=== PATIENT | female | born 1975 | race Caucasian/White ===

== ENCOUNTER 2016-07-25 16:26 | Outpatient (CLI) | payer BC ==
[~2016-07-25] VITALS: Ht 162.6 cm; Wt 86.2 kg
[~2016-07-25 16:26] MED LIST: DOCU100C37 PO; ENAL10TA PO; ESTR0.62 PO; HYDR-3816 PO; IBUP-1773 PO; SIME80TA16 PO
--- OUTSIDE RECORDS SUMMARY | 2016-07-25 16:29 | XMS REPORT | Continuity of Care Document ---
Author Author [facility] [address] Organization [facility] [address] Address Unknown Phone Unavailable Care Team Providers Care Blueprint Clerk Name Role Phone DEBBI RUIZ MD PCP Insurance Providers Payer Name Policy Number Subscriber Name Relationship [facility] [id number] Mirtha Salazar 16 Self / Same As Patient Advance Directives Directive Response Recorded Date/Time Advance Directives No 10/15/15 7:03am Health Care Power of Crusher Operator No 10/15/15 7:03am Resuscitation Status Full Code 10/15/15 7:03am Problems No problem information available. Medications Current Home Medications Medication Dose Units Route Directions Days/Qty Instructions Start Date Enalapril Maleate 10 Mg 10 Mg Oral Twice A Day 10/06/15 Hydrocodone/Acetaminophen 1 Each 1-2 Ea Oral Every 6 Hours as needed for Pain 50 10/15/15 Ibuprofen 600 Mg 600 Mg Oral Every 6 Hours as needed for Pain 80 10/14 Docusate Sodium 100 Mg 100 Mg Oral Twice A Day as needed for Constipation 40 10/15/15 Simethicone 80 Mg 40 Mg Oral Three Times A Day as needed for Indigestion 40 10/15/15 Estrogens, Conjugated 0.625 Mg 0.625 Mg Oral Daily 30 10/16/15 Social History Social History Problem Response Recorded Date/Time Alcohol Use Denies Use 10/15/2015 7:03am Recreational Drug Use No 10/15/2015 7:03am Recent Foreign Travel No 10/15/2015 7:01am HIV/AIDS No 10/15/2015 7:03am Smoking Status Never a Smoker 10/15/2015 7:01am Query Response Start Date Stop Date Smoking Status Never a Smoker Hospital Discharge Instructions Patient Instructions Physician Instructions New, Converted or Re-Newed RX: RX on Chart Additional Follow Up: Yes Orders/Referrals Dr. Mendez in 7-10 days and in 8 weeks Activity: Activity as Tolerated Driving Instructions: No Driving for 1 Week NO SMOKING: NO SMOKING Nothing Inside Vagina: No Douching, No [place], No Tampons Discharge Diet: No Restrictions Symptoms to Report to : Bleeding Excessive, Pain Increased, Fever Over 101 Degrees F, Vaginal Bleeding Increase, Questions/Concerns For Any Problems or Questions: Contact Your Physician, Go to Emergency Room Infection Signs and Symptoms: Increased Redness, Foul Odor of Wound, Increased Drainage, Skin Itchy or Has a Rash, Increased Swelling, Temperature Above 101 F Operative Area Clean and Dry: Keep Incision Clean/Dry Stitches/Leonore/Dermabond: Dermabond, Care of Stitches Bathing Instructions: Shower Plan of Care Discharge Date 10/16/15 11:35am Instructions/Education Provided Robot Assisted Laparoscopic Hysterectomy (DC) Prescriptions See Medication Section Functional Status Query Response Date Recorded Patient Orientation Person Place Time Situation Normal For Age October 16, 2015 2:45pm Allergies, Adverse Reactions, Alerts No known allergies. Immunizations No immunization records. Vital Signs Acute Vital Signs Vital Response Date/Time Temperature (Fahrenheit) 97.4 degrees F (97.6 - 99.5) 10/16/2015 8:20am Temperature (Calculated Celsius) 36.59822 degrees C (36.4 - 37.5) 10/16/2015 8:20am Temperature Source Tympanic 10/16/2015 8:20am Pulse Rate (adult) 84 bpm (60 - 90) 10/16/2015 8:20am Respiratory Rate 16 bpm (12 - 24) 10/16/2015 8:20am O2 Sat by Pulse Oximetry 99 % (88 - 100) 10/16/2015 8:20am Blood Pressure 112/69 mm Hg 10/16/2015 8:20am Blood Pressure Mean 83 mm Hg 10/16/2015 8:20am Pain Pain Intensity 5 10/16/2015 11:29am Height (Feet) 5 feet 10/15/2015 7:03am Height (Inches) 2.00 inches 10/15/2015 7:03am Height (Calculated Centimeters) 157.346899 cm 10/15/2015 7:03am Weight (Pounds) 198 pounds 10/15/2015 7:03am Weight (Ounces) 0.0 oz 10/15/2015 7:03am Weight (Calculated Grams) 92405.290 gm 10/15/2015 7:03am Weight (Calculated Kilograms) 89.284243 kilograms 10/15/2015 7:03am Calculated BMI 32.94 10/15/2015 7:03am Results Pending Laboratory Results Test Name Collection Date/Time Pending Microbiology Results Procedure Source Collection Date/Time Procedures Procedure Status Date Provider(s) Robot-assisted hysterectomy Completed 10/15/15 DINO MENDEZ DO Encounters Encounter Location Arrival/Admit Date Discharge/Depart Date Attending Provider Registered Surgical Day Care [facility] [address] 10/15/15 6:00am DINO MENDEZ DO Departed Clinic [facility] [address] 10/06/15 8:16am 10/06/15 9: 46am DINO MENDEZ DO
[2016-07-25 16:30] VITALS: BP 149/106
[2016-07-25] MEDS ORDERED: D5 LR IV SOLUTION 1,000 ML IV ONE ×2 (16:38→17:15)
[2016-07-25] MEDS ORDERED: HYDR12.56 PO (17:08)
--- NOTE | 2016-07-27 11:49 | Physician Query-Final Dx ---
ANGEL HAIRSTON 07/27/16 1149: Clinic Account Progress/Dx Physician Query: Please give a diagnosis for the D5LR 1L treatment thank you Date of Service Jul 25, 2016 at 16:26 DEBBI RUIZ MD 07/28/16 0805: Clinic Account Progress/Dx DIAGNOSIS: Diagnosis 1. Dehydration 2. Viral Gastroenteritis ANGEL HAIRSTON Jul 27, 2016 11:49 DEBBI RUIZ MD Jul 28, 2016 08:05
== END 2016-07-25 17:30 | disposition home or self-care (01) ==
LOC: SDC 16:26
PROVIDERS: ATTEND Family Medicine
DX: E86.0 Dehydration (principal); A08.4 Viral intestinal infection, unspecified
CPT/HCPCS: 96360

== ENCOUNTER 2017-02-23 15:15 | Outpatient (RCR) | payer BC ==
[~2017-02-23 15:15] MED LIST changes: +HYDR12.56 PO
== END 2017-02-25 | disposition home or self-care (01) ==
PROVIDERS: ATTEND Radiology Vascular & Interventional Radiology
DX: G54.0 Brachial plexus disorders (principal)

== ENCOUNTER → 2017-03-16 | Outpatient (CLI) | payer BC ==
--- NOTE | 2017-03-16 15:43 | Diagnostic Imaging Report ---
PROCEDURE: MRI right joint upper extremity without contrast. TECHNIQUE: Multiplanar, multisequence non contrast-enhanced MRI of the right upper extremity was accomplished. INDICATION: Right arm pain. FINDINGS: Please note that there is generally mild motion artifacts on this exam from patient's inability to hold completely still which could obscure a subtle abnormality. There is no os acromiale or Hill-Sachs deformity. The AC joint demonstrates no significant degenerative changes. There is a laterally downsloping configuration of the acromion with flat undersurface. There is minimal increased signal in the supraspinatus and infraspinatus tendons compatible with mild tendinosis. No high-grade tear. The subscapularis tendon appears intact. The long head of biceps tendon is within its groove. There is increased signal seen within the inferior fibers of the infraspinatus muscle. This could be related to a mild muscle injury or myositis. There is no fluid collection, significant tear or evidence of an infection. The muscle bulk is normal. There is mild increased signal in the superior aspect of the labrum which could relate to a underlying labral tear or degeneration. The marrow demonstrates nonspecific minimally prominent vascular channels within the proximal humerus with no concerning focal lesion seen. IMPRESSION: 1. Mild increased signal in the infraspinatus muscle fibers without a high-grade injury or fluid collection. This might relate to a mild muscle sprain or myositis. 2. Increased signal in the superior segment of the labrum may relate to degeneration or tear. 3. Mild supraspinatus and infraspinatus tendinosis. Dictated by: Dictated on workstation # [id number]
== END ==
LOC: RAD 13:31
DX: R93.7 Abnormal findings on diagnostic imaging of other parts of musculoskeletal system (principal)
CPT/HCPCS: 73221

== ENCOUNTER 2017-05-26 15:12 | Outpatient (RCR) | payer BC | END 2017-05-28 | disposition home or self-care (01) | PROVIDERS: ATTEND Radiology Vascular & Interventional Radiology | DX: G54.0 Brachial plexus disorders (principal) ==

== ENCOUNTER 2017-07-06 15:58 | Outpatient (RCR) | payer BC ==
[~2017-07-06 15:58] MED LIST changes: +HYDR-34 PO; -HYDR-3816 PO
== END 2017-07-20 10:20 | disposition home or self-care (01) ==
PROVIDERS: ATTEND Radiology Vascular & Interventional Radiology
DX: G54.0 Brachial plexus disorders (principal)

== ENCOUNTER → 2017-07-14 | Outpatient (CLI) | payer BC ==
--- NOTE | 2017-07-14 18:11 | Diagnostic Imaging Report ---
INDICATION: Routine screening. COMPARISON: Comparison is made with prior study from 08/10/2015. The current study was also evaluated with a Computer Aided Detection (CAD) system. FINDINGS: Scattered fibroglandular densities are identified bilaterally. Small well-defined nodular densities in the outer right breast appear stable. Nodular density with associated marker clip in the left breast appears stable as well. Benign calcification on the right is seen. No new mass or malignant-appearing microcalcifications are identified. The axillae are unremarkable. IMPRESSION: No mammographic features suspicious for malignancy are identified. ACR BI-RADS Category 2: Benign findings. Result letter will be mailed to the patient. Note: At least 10% of breast cancer is not imaged by mammography. Dictated by: Dictated on workstation # [id number]
== END ==
LOC: RAD 07:34
PROVIDERS: ATTEND Family Medicine
DX: Z12.31 Encounter for screening mammogram for malignant neoplasm of breast (principal)
CPT/HCPCS: 77067

== ENCOUNTER → 2017-09-11 | Outpatient (CLI) | payer BC ==
--- NOTE | 2017-09-11 09:20 | Diagnostic Imaging Report ---
INDICATION: Cough. Time of exam 9:22 AM Correlation is made with prior study from 07/04/2014. The heart size is normal. The pulmonary vascularity is unremarkable. The lungs are clear. No infiltrate, effusion or pneumothorax is detected. Impression: No acute cardiopulmonary process is detected. Dictated by: Dictated on workstation # [id number]
== END ==
LOC: RAD 08:37
PROVIDERS: ATTEND Family Medicine
DX: R05 Cough (principal)
CPT/HCPCS: 71046

== ENCOUNTER 2018-01-17 16:03 | Outpatient (RCR) | payer BC, OTHER | END 2018-02-05 | disposition home or self-care (01) | PROVIDERS: ATTEND Radiology Vascular & Interventional Radiology | DX: G54.0 Brachial plexus disorders (principal) ==

== ENCOUNTER 2018-02-22 16:16 | Outpatient (RCR) | payer BC, OTHER | END 2018-02-25 | disposition home or self-care (01) | PROVIDERS: ATTEND Radiology Vascular & Interventional Radiology | DX: G54.0 Brachial plexus disorders (principal) ==

== ENCOUNTER 2018-04-10 16:04 | Outpatient (RCR) | payer BC, OTHER | END 2018-05-24 13:39 | disposition home or self-care (01) | PROVIDERS: ATTEND Radiology Vascular & Interventional Radiology | DX: G54.0 Brachial plexus disorders (principal) ==

== ENCOUNTER 2018-08-14 15:56 | Outpatient (RCR) | payer BC | END 2018-08-29 13:20 | disposition home or self-care (01) | PROVIDERS: ATTEND Radiology Vascular & Interventional Radiology | DX: G54.0 Brachial plexus disorders (principal) ==

== ENCOUNTER → 2018-08-15 | Outpatient (CLI) | payer BC ==
--- NOTE | 2018-08-15 16:35 | Diagnostic Imaging Report ---
EXAMINATION: Magnetic resonance imaging of the right shoulder without contrast. DATE: August 15, 2018. COMPARISON: Right shoulder MRI, March 16, 2017. HISTORY: 43-year-old female, right shoulder pain and decreased range of motion. TECHNIQUE: Magnetic Resonance Imaging sequences were performed of the shoulder without contrast. FINDINGS: ROTATOR CUFF, LIGAMENTS, TENDONS, AND MUSCLES: The supraspinatus, infraspinatus, teres minor, and subscapularis tendons and muscles are intact. There is normal rotator cuff muscle bulk and signal. Previously noted edema in the teres minor muscle has resolved. There is no current fatty muscle atrophy. This potentially may have related to prior low-grade muscle strain. LONG HEAD OF BICEPS: The biceps labral attachment and long head of the biceps tendon is intact. The long head of the biceps tendon is normally positioned within the bicipital groove. GLENOHUMERAL JOINT: The humeral head is well positioned relative to the glenoid. The labrum is grossly intact. There is no identified paralabral cyst. The articular cartilage is grossly intact. There is no joint effusion. ACROMIOCLAVICULAR JOINT: The acromioclavicular joint is normally aligned. The coracoclavicular and coracoacromial ligaments are intact. There are no degenerative changes of the acromioclavicular joint. BONE: The bones all have normal configuration. The bone marrow signal is within normal limits. Specifically, negative for fracture, osteomyelitis, osteonecrosis, or marrow replacing process. BURSAE AND SOFT TISSUES: The bursae and soft tissue surrounding the shoulder are unremarkable. IMPRESSION: 1. Unremarkable MRI of right shoulder. 2. Previously noted edema-like signal in the teres minor muscle has resolved. There is no current abnormal intramuscular signal or fatty muscle atrophy. Dictated by: Dictated on workstation # [id number]
== END ==
LOC: RAD 15:14
PROVIDERS: ATTEND Orthopaedic Surgery
DX: M25.511 Pain in right shoulder (principal)
CPT/HCPCS: 73221

== ENCOUNTER → 2018-11-28 | Outpatient (CLI) | payer BC ==
--- NOTE | 2018-12-01 07:50 | Diagnostic Imaging Report ---
Digital mammogram. Bilateral screening with 3-D tomosynthesis and CAD. The study was compared to prior exams of 07/14/2017 and 08/10/2015. At this time there are no current complaints. There are scattered fibroglandular densities in both breasts which could obscure a lesion. Overall, there does not appear to have been any significant change. The stereotactic clip and the area of increased density in the upper inner aspect of the left breast seen previously are again visualized. There is no primary or secondary sign of malignancy noted. Impression: There is no evidence for malignancy. ACR BI-RADS Category 1: Negative. Result letter will be mailed to the patient. Note: At least 10% of breast cancer is not imaged by mammography. Dictated on workstation # [id number]
== END ==
LOC: RAD 09:52
PROVIDERS: ATTEND Family Medicine
DX: Z12.31 Encounter for screening mammogram for malignant neoplasm of breast (principal)
CPT/HCPCS: 77067

== ENCOUNTER 2019-06-26 16:52 | Emergency (ER) | payer BC ==
[~2019-06-26] VITALS: Ht 157 cm; Wt 84.0 kg
[2019-06-26] MEDS ORDERED: ASPIRIN 81 MG CHEW (CHILDREN'S ASA) PO ONE (17:00)
[2019-06-26] MEDS: NITROGLYCERIN 0.4 MG SL TABS BTL 25'S SL PRN ×3 (17:09→17:22)
[2019-06-26 17:19] LABS: BASOPHILS % (AUTO) 0 % (0-10); EOSINOPHILS # (AUTO) 0.1 10^3/uL (0.0-0.3); EOSINOPHILS % (AUTO) 1 % (0-10); HEMATOCRIT 41 % (35-52); HEMOGLOBIN 13.9 G/DL (11.5-16.0); LYMPHOCYTES # (AUTO) 2.8 X 10^3 (1.0-4.0); LYMPHOCYTES % (AUTO) 24 % (12-44); MEAN CORPUSCULAR HEMOGLOBIN 29 PG (25-34); MEAN CORPUSCULAR HGB CONC 34 G/DL (32-36); MEAN CORPUSCULAR VOLUME 87 FL (80-99); MEAN PLATELET VOLUME 9.6 FL (7.4-10.4); MONOCYTES # (AUTO) 0.7 X 10^3 (0.0-1.0); MONOCYTES % (AUTO) 6 % (0-12); NEUTROPHILS # (AUTO) 7.8 X 10^3 (1.8-7.8); NEUTROPHILS % (AUTO) 68 % (42-75); PLATELET COUNT 385 10^3/uL (130-400); RED CELL DISTRIBUTION WIDTH 12.8 % (10.0-14.5); WHITE BLOOD COUNT 11.4 10^3/uL (4.3-11.0)
--- NOTE | 2019-06-26 17:28 | ED Upper Extremity ---
General Chief Complaint: Upper Extremity Stated Complaint: PAIN IN LEFT SHOULDER Nursing Triage Note: PT PRESENTS TO ED FROM HOME WITH COMPLAINTS OF L SHOULDER BLADE PAIN THAT RADIATES DOWN HER L ARM. PT DENIES ANY CP AT THIS TIME OR SOA. 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 Nursing Sepsis Screen: No Definite Risk Source: patient History of Present Illness Date Seen by Provider: Jun 26, 2019 Time Seen by Provider: 16:55 Initial Comments PT ARRIVES VIA POV STATES SHE WAS SITTING AT COMPUTER AT WORK, ( WORKS AT [employer]) AND SUDDENLY BEGAN HAVING SEVERE PAIN IN LEFT SHOULDER BLADE, RADIATING DOWN LEFT ARM SYMPTOMS BEGAN APPROXIMATELY 20 MINUTES AGO, AND CAME STRAIGHT HERE LEFT ARM FEELS SLIGHTLY TINGLY NO CHEST PAIN NO SHORTNESS OF BREATH NO PALPITATIONS NO DIZZINESS NO SYNCOPE NO MOTOR DEFICITS NO SWEATS SLIGHT NAUSEA, NO VOMITING NO SWELLING IN LEGS / FEET, NO LONG TRIPS OR PROLONGED SITTING, ETC. NO NECK OR SPINE PAIN STATES SHE HAS HAD A COUPLE OF VERY BRIEF, SIMILAR EPISODES OVER THE LAST COUPLE OF DAYS, ONLY LAST A FEW SECONDS TO A MINUTE TOOK 1 ADVIL, JUST PRIOR TO ARRIVAL PT IS RIGHT HANDED NO UNUSUAL ACTIVITY OR UNUSUAL STRESS STATES SHE IS SUPPOSED TO BE DRIVING TO [facility] PT HAD RIGHT THORACIC OUTLET SURGERY 2 1/2 YEARS AGO THIS POSSIBLY FEELS SIMILAR TO THE PAIN SHE WAS HAVING ON THE RIGHT, PRIOR TO THAT SURGERY. PT HAS HISTORY OF HTN--BP MEDICATION DOUBLED IN THE LAST 2 WEEKS PCP: DR. RUIZ Allergies and Home Medications Allergies Coded Allergies: No Known Drug Allergies (Unverified , 10/06/15) Home Medications Enalapril Maleate 10 Mg Tablet, 10 MG PO BID, (Reported) Hydrochlorothiazide 12.5 Mg Tablet, 12.5 MG PO DAILY Prescribed by: DAMION LENZ on 07/25/161707 Meloxicam 15 Mg Tablet, 15 MG PO DAILY Prescribed by: RAMU DIXON on 06/26/191949 Tizanidine HCl 4 Mg Tablet, 4 MG PO TID Prescribed by: RAMU DIXON on 06/26/191949 Patient Home Medication List Home Medication List Reviewed: Yes Review of Systems Constitutional: no symptoms reported; No chills, No diaphoresis, No dizziness, No fever EENTM: no symptoms reported Respiratory: no symptoms reported; No cough, No orthopnea, No short of breath Cardiovascular: no symptoms reported; No chest pain, No edema, No palpitations, No syncope, No vascular heart diseas Gastrointestinal: see HPI; No abdominal pain, No constipation, No diarrhea; nausea; No vomiting Genitourinary: no symptoms reported Musculoskeletal: see HPI, back pain; No neck pain Skin: no symptoms reported Psychiatric/Neurological: See HPI, Anxiety, Paresthesia; Denies Weakness Past [id number]-[id number] Hx Patient Social History Alcohol Use: Denies Use Recreational Drug Use: No Smoking Status: Never a Smoker Recent Foreign Travel: No Contact w/Someone Who Travel: No Recent Infectious Disease Expo: No Recent Hopitalizations: No Physical Abuse: No Sexual Abuse: No Mistreated: No Fear: No Past Medical History Surgeries: Yes (R THORACIC OUTLET; HYST/BSO; APPY; ZEN) Adenoidectomy, Appendectomy, Gallbladder, Hysterectomy, Oophorectomy, Orthopedic, Tonsillectomy Respiratory: No Cardiac: Yes High Cholesterol, Hypertension Neurological: No Reproductive Disorders: Yes (FIBROID; S/P HYST/BSO) Female Reproductive Disorders: Menstrual Problems HIV/AIDS: No Gastrointestinal: No Musculoskeletal: Yes (RIGHT THORACIC OUTLET SURGERY) Endocrine: No Hearing Impairment: Denies Cancer: No Psychosocial: No Integumentary: No Blood Disorders: No Adverse Reaction/Blood Tranf: No (N/A) Physical Exam Vital Signs Vital Signs - First Documented 06/26/19 17:17 Temp 37.2 Pulse 126 Resp 18 B/P (MAP) 139/85 (103) Pulse Ox 94 Capillary Refill : Less Than 3 Seconds Height, Weight, BMI Height: 5'4.00" Weight: 190lbs. 0.0oz. 86.021120lv; 34.00 BMI Method: General Appearance: WD/WN, no apparent distress, obese, other (ANXIOUS, TEARFUL) Neck: non-tender, full range of motion, supple, normal inspection Cardiovascular: normal peripheral pulses, regular rate, rhythm, no edema, no JVD, no murmur Respiratory: chest non-tender, normal breath sounds, no respiratory distress, no accessory muscle use Gastrointestinal: non tender, soft Back: normal inspection, no CVA tenderness, no vertebral tenderness Shoulder: normal inspection, non-tender, no evidence of injury, normal ROM Elbow/Forearm: normal inspection, non-tender, no evidence of injury, normal ROM Wrist: Yes normal inspection, Yes non-tender, Yes no evidence of injury, Yes normal ROM Hand: normal inspection, non-tender, no evidence of injury, normal ROM Neurologic/Tendon: normal sensation, normal motor functions, normal tendon functions 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, no motor/sensory deficits, alert, oriented x 3 Skin: normal color, warm/dry; No rash Progress/Results/Core Measures Results/Orders Lab Results Laboratory Tests Test 06/26/19 17:07 Range/Units White Blood Count 11.4 H 4.3-11.0 10^3/uL Red Blood Count 4.74 4.35-5.85 10^6/uL Hemoglobin 13.9 11.5-16.0 G/DL Hematocrit 41 35-52 % Mean Corpuscular Volume 87 80-99 FL Mean Corpuscular Hemoglobin 29 25-34 PG Mean Corpuscular Hemoglobin Concent 34 32-36 G/DL Red Cell Distribution Width 12.8 10.0-14.5 % Platelet Count 385 130-400 10^3/uL Mean Platelet Volume 9.6 7.4-10.4 FL Neutrophils (%) (Auto) 68 42-75 % Lymphocytes (%) (Auto) 24 12-44 % Monocytes (%) (Auto) 6 0-12 % Eosinophils (%) (Auto) 1 0-10 % Basophils (%) (Auto) 0 0-10 % Neutrophils # (Auto) 7.8 1.8-7.8 X 10^3 Lymphocytes # (Auto) 2.8 1.0-4.0 X 10^3 Monocytes # (Auto) 0.7 0.0-1.0 X 10^3 Eosinophils # (Auto) 0.1 0.0-0.3 10^3/uL Basophils # (Auto) 0.0 0.0-0.1 10^3/uL Prothrombin Time 12.8 12.2-14.7 SEC INR Comment 0.9 0.8-1.4 Activated Partial Thromboplast Time 35 24-35 SEC Sodium Level 137 135-145 MMOL/L Potassium Level 3.8 3.6-5.0 MMOL/L Chloride Level 102 98-107 MMOL/L Carbon Dioxide Level 24 21-32 MMOL/L Anion Gap 11 5-14 MMOL/L Blood Urea Nitrogen 12 7-18 MG/DL Creatinine 0.83 0.60-1.30 MG/DL Estimat Glomerular Filtration Rate > 60 BUN/Creatinine Ratio 14 Glucose Level 100 70-105 MG/DL Calcium Level 10.0 8.5-10.1 MG/DL Corrected Calcium 8.5-10.1 MG/DL Magnesium Level 2.0 1.6-2.4 MG/DL Total Bilirubin 0.2 0.1-1.0 MG/DL Aspartate Amino Transf (AST/SGOT) 15 5-34 U/L Alanine Aminotransferase (ALT/SGPT) 16 0-55 U/L Alkaline Phosphatase 110 40-136 U/L Total Creatine Kinase 82 29-168 U/L Creatine Kinase MB 1.2 <6.6 NG/ML Myoglobin 30.9 10.0-92.0 NG/ML Troponin I < 0.028 <0.028 NG/ML B-Type Natriuretic Peptide 13.7 <100.0 PG/ML Total Protein 8.2 6.4-8.2 GM/DL Albumin 4.6 H 3.2-4.5 GM/DL Amylase Level 40 25-125 U/L Lipase 15 8-78 U/L My Orders Orders - RAMU DIXON DO Cbc With Automated Diff (06/26/19 16:56) Magnesium (06/26/19 16:56) Chest 1 View, Ap/Pa Only (06/26/19 16:56) Ekg Tracing (06/26/19 16:56) Comprehensive Metabolic Panel (06/26/19 16:56) Myoglobin Serum (06/26/19 16:56) Protime With Inr (06/26/19 16:56) Partial Thromboplastin Time (06/26/19 16:56) O2 (06/26/19 16:56) Monitor-Rhythm Ecg Trace Only (06/26/19 16:56) Ed Iv/Invasive Line Start (06/26/19 16:56) Creatine Kinase (06/26/19 16:56) Creatine Kinase Mb (06/26/19 16:56) Lipase (06/26/19 16:56) Amylase (06/26/19 16:56) BNP (06/26/19 16:56) Troponin I (06/26/19 16:56) Nitroglycerin 0.4 Mg Btl 25's (Nitrostat (06/26/19 17:00) Aspirin Chewable Tablet (Baby Aspirin Ch (06/26/19 17:00) Ketorolac Injection (Toradol Injection) (06/26/19 17:30) Orphenadrine Injection (Norflex Injectio (06/26/19 17:45) Fentanyl Injection (Sublimaze Injection (06/26/19 18:15) Ct Angio Chest W (06/26/19 18:07) Ct Cervical Spine Wo (06/26/19 18:07) Fentanyl Injection (Sublimaze Injection (06/26/19 18:07) Iohexol Injection (Omnipaque 350 Mg/Ml 1 (06/26/19 19:45) Received Contrast (Hold Metformin- Contr (06/26/19 19:45) Ns (Ivpb) (Sodium Chloride 0.9% Ivpb Bag (06/26/19 19:45) Fentanyl Injection (Sublimaze Injection (06/26/19 19:45) Medications Given in ED Current Medications Medications Dose Ordered Sig/Aquiles Route Start Time Stop Time Status Last Admin Dose Admin Aspirin 324 mg ONCE ONCE PO 06/26/19 17:00 06/26/19 17:01 DC 06/26/19 17:05 324 MG Fentanyl Citrate 50 mcg ONCE ONCE IVP 06/26/19 18:15 06/26/19 18:16 DC 06/26/19 18:17 50 MCG Iohexol 150 ml ONCE ONCE IV 06/26/19 19:45 06/26/19 19:46 DC 06/26/19 19:33 125 ML Ketorolac Tromethamine 30 mg ONCE ONCE IVP 06/26/19 17:30 06/26/19 17:31 DC 06/26/19 17:47 30 MG Nitroglycerin 0.4 mg UD PRN SL 06/26/19 17:00 06/26/19 17:22 DC 06/26/19 17:22 0.4 MG Orphenadrine Citrate 60 mg ONCE ONCE IV 06/26/19 17:45 06/26/19 17:46 DC 06/26/19 17:46 60 MG Sodium Chloride 100 ml ONCE ONCE IV 06/26/19 19:45 06/26/19 19:46 DC 06/26/19 19:33 80 ML Vital Signs/I&O 06/26/19 17:17 Temp 37.2 Pulse 126 Resp 18 B/P (MAP) 139/85 (103) Pulse Ox 94 Blood Pressure Mean: 103 Progress Progress Note : Progress Note UNABLE TO REPRODUCE PAIN BY PALPATION, BUT MINOR THINGS SUCH TOURNIQUET OR BP CUFF ON ARM, INCREASES/REPRODUCES PAIN, DOES MOVEMENT OF LEFT ARM NO RELIEF WITH NTG X3, BUT BP SIGNIFICANTLY IMPROVED GIVEN TORADOL + NORFLEX WITH MINIMAL IMPROVEMENT GIVEN FENTANYL WITH MODERATE IMPROVEMENT NO DETERIORATION IN PT'S CONDITION DURING ER STAY Initial ECG Impression Date: Jun 26, 2019 Initial ECG Impression Time: 16:54 Initial ECG Rate: 104 Initial ECG Rhythm: S.Tach Diagnostic Imaging Comments CXR--NO ACUTE PROCESS, PER RADIOLOGIST REPORT AT 1744 CT CERVICAL SPINE--NO ACUTE PROCESS, NO HIGH GRADE CANAL STENOSIS, NO SOFT TISSUE ABNORMALITIES. PER RADIOLOGIST REPORT AT 1945 CT CHEST ANGIOGRAM--NO P.E. OR OTHER ACUTE PROCESS IN CHEST, MILD FOCAL DUODENITIS--PER RADIOLOGIST REPORT AT 1948 Reviewed: Reviewed by Me Departure Impression Primary Impression: Pain of left scapula Additional Impressions: Radicular pain in left arm HTN (hypertension) Disposition: 01 HOME, SELF-CARE Condition: Improved Departure-Patient Inst. Referrals: DEBBI RUIZ MD (PCP/Family) Primary Care Physician Patient Instructions: Controlling Your Blood Pressure Through Lifestyle, DASH Diet, High Blood Pressure (DC), Muscle and Bone Pain (DC), Radiculopathy (DC) Add. Discharge Instructions: MOIST HEAT TO AREA AT 20 MINUTE INTERVALS NO LIFTING OR OVERHEAD USE OF LEFT ARM FOLLOW UP WITH YOUR DR IN 1-2 DAYS FOR FURTHER CARE, RETURN TO ER IF WORSE All discharge instructions reviewed with patient and/or family. Voiced understanding. Scripts Tizanidine HCl (Zanaflex) 4 Mg Tablet 4 MG PO TID, #15 TAB Prov: RAMU DIXON DO 06/26/19 Meloxicam (Mobic) 15 Mg Tablet 15 MG PO DAILY, #10 TAB Prov: RAMU DIXON DO 06/26/19 RAMU DIXON DO Jun 26, 2019 17:28
[2019-06-26] MEDS ORDERED: KETOROLAC 30 MG/ML VIAL IVP ONE (17:30)
[2019-06-26 17:35] LABS: INR 0.9 (0.8-1.4); PROTHROMBIN TIME PATIENT 12.8 SEC (12.2-14.7)
--- NOTE | 2019-06-26 17:37 | Diagnostic Imaging Report ---
CHEST 1 VIEW, AP/PA ONLY Indication: Chest pain. Comparison: 09/11/2017 Findings: No focal airspace disease in the visualized lungs. Please note that the posterior lower lobes are poorly evaluated by portable radiography. No pleural effusion or pneumothorax. Normal cardiomediastinal silhouette. Impression: 1. No acute cardiopulmonary process by portable radiography. Dictated by: Dictated on workstation # [id number]
[2019-06-26 17:41] LABS: ALANINE AMINOTRANSFERASE 16 U/L (0-55); ALBUMIN 4.6 GM/DL (3.2-4.5); ALKALINE PHOSPHATASE 110 U/L (40-136); AMYLASE 40 U/L (25-125); BILIRUBIN,TOTAL 0.2 MG/DL (0.1-1.0); BUN/CREATININE RATIO 14; CARBON DIOXIDE 24 MMOL/L (21-32); CHLORIDE 102 MMOL/L (98-107); CREATINE KINASE 82 U/L (29-168); CREATININE SERUM 0.83 MG/DL (0.60-1.30); GFR ESTIMATED > 60; GLUCOSE 100 MG/DL (70-105); LIPASE 15 U/L (8-78); POTASSIUM 3.8 MMOL/L (3.6-5.0); SODIUM 137 MMOL/L (135-145); TOTAL PROTEIN 8.2 GM/DL (6.4-8.2)
[2019-06-26] MEDS ORDERED: ORPHENADRINE 60 MG/2 ML (NORFLEX) AMP IV ONE (17:45)
[2019-06-26 17:48] LABS: CREATINE KINASE MB 1.2 NG/ML (<6.6)
[2019-06-26] MEDS ORDERED: fentaNYL INJECTION 100 MCG/2 ML AMP ONE (18:07)
[2019-06-26] MEDS ORDERED: fentaNYL INJECTION 100 MCG/2 ML AMP IVP ONE ×2 (18:15→19:45)
--- NOTE | 2019-06-26 19:37 | Diagnostic Imaging Report ---
PROCEDURE: CT cervical spine without contrast. TECHNIQUE: Multiple contiguous axial images were obtained through the cervical spine without the use of intravenous contrast. Sagittal and coronal reformations were then performed. Auto Exposure Controls were utilized during the CT exam to meet ALARA standards for radiation dose reduction. INDICATION: Right shoulder/scapular pain. COMPARISON: None available. FINDINGS: No fracture or traumatic malalignment in the cervical spine. There is mild straightening of the cervical spine noted. No spondylolisthesis. No areas of high-grade spinal stenosis by CT. No advanced neural foraminal narrowing. Visualized lung apices are clear. No soft tissue abnormality appreciated around the visualized aspects of the left upper scapula. Thyroid is normal. No cervical lymphadenopathy. IMPRESSION: 1. No fracture or malalignment in the cervical spine. 2. No high-grade spinal stenosis or neural foraminal narrowing. 3. No soft tissue abnormality about the visualized aspects of the left scapula. Dictated by: Dictated on workstation # [id number]
[2019-06-26] MEDS ORDERED: IOHEXOL 350 MG/ML 150 ML (OMNIPAQUE 350) VIAL IV ONE (19:45)
[2019-06-26] MEDS ORDERED: NS 100 ML (IVPB) BAG IV ONE (19:45)
[2019-06-26] MEDS ORDERED: HOLD METFORMIN - RECEIVED CONTRAST 20 ML VIAL IV SCH (19:45)
--- NOTE | 2019-06-26 19:46 | Diagnostic Imaging Report ---
EXAMINATION: CTA chest with contrast, 06/26/2019. TECHNIQUE: Multiple contiguous axial images were obtained through the chest after uneventful bolus administration of intravenous contrast. 3D reconstructed CTA MIP acquisitions were also performed. Auto Exposure Controls were utilized during the CT exam to meet ALARA standards for radiation dose reduction. INDICATION: Pain in the left scapular region radiating down the left arm. FINDINGS: No central or proximal segmental pulmonary emboli are seen. The thoracic aorta is unremarkable. The mediastinum is unremarkable for acute abnormality. Lungs demonstrate no acute process. Osseous structures are unremarkable for acute abnormality. The upper abdomen demonstrates mild wall thickening of the duodenal sweep possibly due to focal duodenitis or enteritis. No free air or inflammatory change in the region is appreciated. IMPRESSION: 1. Incidental findings as above with mild wall thickening of the duodenal sweep possibly due to focal duodenitis or even enteritis. Remaining findings as above with no evidence for pulmonary embolus. Dictated by: Dictated on workstation # [id number]
[2019-06-26] MEDS ORDERED: TIZA4TAB11 PO (19:50)
[2019-06-26] MEDS ORDERED: MELO15TA14 PO (19:50)
[2019-06-26 20:28] VITALS: BP 107/73
== END 2019-06-26 20:28 | disposition home or self-care (01) ==
LOC: EDUNIT# 16:52 → ER 16:53
DX: M25.512 Pain in left shoulder (principal); M54.10 Radiculopathy, site unspecified; I10 Essential (primary) hypertension; Z90.89 Acquired absence of other organs; Z90.49 Acquired absence of other specified parts of digestive tract; Z90.710 Acquired absence of both cervix and uterus
CPT/HCPCS: 36415; 71045; 71275; 72125; 80053; 82150; 82550; 82553; 83690; 83735; 83874; 83880; 84484; 85025; 85610; 85730; 93005; 93041

== ENCOUNTER → 2020-02-21 | Outpatient (CLI) | payer BC ==
[~2020-02-21] MED LIST changes: -ENAL10TA PO; +ENAL10TA16 PO; +MELO15TA14 PO; +TIZA4TAB11 PO
--- NOTE | 2020-02-21 10:52 | Diagnostic Imaging Report ---
PROCEDURE: US carotid duplex, bilateral. TECHNIQUE: Multiple real-time grayscale images were obtained over the carotid arteries in various projections, bilaterally. Additional spectral analysis and color Doppler duplex images were also obtained. INDICATION: Dizziness Grayscale images do not show any atherosclerotic plaque. Velocities and waveforms appear normal. Both vertebral arteries are patent with antegrade flow. IMPRESSION: Negative carotid Doppler Parameters based on the consensus panel Bowen-Scale and Doppler ultrasound criteria published March 2003, Radiology, Volume 229. DOPPLER (peak systolic velocity M/S Right Left CCA .94 .92 ICA Proximal .90 1.0 ICA Mid 1.0 1.1 ICA Distal 1.1 .89 RATIO 1.1 1.1 ECA 1.1 1.5 VERT .76 .62 Dictated by: Dictated on workstation # [id number]
--- NOTE | 2020-02-24 10:06 | Diagnostic Imaging Report ---
Digital mammogram. Bilateral screening This study was compared to the prior exams of 11/28/2018, 07/14/2017 and 08/10/2015. Reportedly the patient has a tender lump in the left axilla. There are scattered fibroglandular densities in both breasts which could obscure a lesion. Overall, there does not appear to have been any significant change. The small benign-appearing nodular densities in the upper outer aspect of the right breast and the post biopsy changes in the left breast seen previously are again evident and no different. There is no primary or secondary sign of malignancy noted. The patient does report a tender lump in the left axilla. A marker was placed over the area of concern. There is no discrete abnormality evident in this area. If further study is desired however, I would recommend ultrasound be performed. Impression: 1. There is no evidence of malignancy. 2. There is no abnormality corresponding to the patient's tender lump in the left axilla. Even so, ultrasound would be recommended for further study. ACR BI-RADS Category 0: Incomplete. (Needs additional imaging evaluation). Result letter will be mailed to the patient. Note: At least 10% of breast cancer is not imaged by mammography. Dictated by: Dictated on workstation # [id number]
== END ==
LOC: RAD 08:12
PROVIDERS: ATTEND Family Medicine
DX: Z12.31 Encounter for screening mammogram for malignant neoplasm of breast (principal); R42 Dizziness and giddiness; Z98.890 Other specified postprocedural states
CPT/HCPCS: 77063; 77067; 93880

== ENCOUNTER → 2020-03-03 | Outpatient (CLI) | payer BC ==
--- NOTE | 2020-03-03 15:54 | Diagnostic Imaging Report ---
INDICATION: Tenderness in the left axilla. FINDINGS: Interrogation of the area of tenderness in the left axilla was performed. No sonographic abnormality is detected. No solid or cystic mass is detected. IMPRESSION: No sonographic abnormality is detected. ACR BI-RADS Category 1: Negative. Dictated by: Dictated on workstation # [id number]
== END ==
LOC: RAD 13:47
PROVIDERS: ATTEND Family Medicine
DX: M79.622 Pain in left upper arm (principal)
CPT/HCPCS: 76642

== ENCOUNTER → 2021-02-08 | Outpatient (CLI) | payer BC ==
--- NOTE | 2021-02-08 15:37 | Diagnostic Imaging Report ---
INDICATION: Fall. Right hip pain. COMPARISON: None. FINDINGS: 2 views of the right hip were obtained and show no fractures, dislocations, or other acute bony abnormalities. Joint spaces are well maintained throughout. The soft tissues appear unremarkable. No radiopaque foreign bodies are identified. IMPRESSION: Unremarkable radiographic exam of the right hip. Dictated by: Dictated on workstation # [id number]
--- NOTE | 2021-02-08 15:37 | Diagnostic Imaging Report ---
INDICATION: Fall. Back pain. COMPARISON: None FINDINGS: Frontal and lateral views of the lumbar spine were obtained. Alignment and vertebral heights are maintained. There is no fracture or destructive process. Mild multilevel degenerative disease is noted in the lumbar spine. Limited views of the abdomen demonstrate nonobstructive bowel gas pattern. IMPRESSION: 1. No acute fracture or dislocation of the lumbar spine. 2. Mild multilevel degenerative changes. Dictated by: Dictated on workstation # [id number]
== END ==
LOC: RAD 13:59
PROVIDERS: ATTEND Family Medicine
DX: M47.896 Other spondylosis, lumbar region (principal); M25.551 Pain in right hip; W19.XXXA Unspecified fall, initial encounter
CPT/HCPCS: 72100; 73502

== ENCOUNTER → 2021-03-18 | Outpatient (CLI) | payer BC ==
--- NOTE | 2021-03-18 12:25 | Diagnostic Imaging Report ---
Indication: Routine screening. Comparison is made with prior mammogram from 02/21/2020 and 12/02/2018. 2-D and 3-D bilateral screening mammography was performed with CAD. Scattered fibroglandular densities are identified bilaterally. Benign-appearing nodule in both breasts appears stable. There is a biopsy marker clip in the left breast. No new mass or malignant-appearing microcalcifications are seen. Axillae are unremarkable. IMPRESSION: BI-RADS Category 2 No mammographic features suspicious for malignancy are identified. ACR BI-RADS Category 2: Benign findings. Result letter will be mailed to the patient. Note: At least 10% of breast cancer is not imaged by mammography. Dictated by: Dictated on workstation # [id number]
== END ==
LOC: RAD 10:15
PROVIDERS: ATTEND Family Medicine
DX: Z12.31 Encounter for screening mammogram for malignant neoplasm of breast (principal)
CPT/HCPCS: 77063; 77067

== ENCOUNTER 2022-06-08 19:11 | Emergency (ER) | payer BC ==
[2022-06-08 19:41] LABS: BILIRUBIN,URINE NEGATIVE (NEGATIVE); CLARITY,URINE CLEAR; COLOR,URINE YELLOW; GLUCOSE, URINE (UA) NEGATIVE (NEGATIVE); KETONES,URINE NEGATIVE (NEGATIVE); LEUKOCYTE ESTERASE ,URINE NEGATIVE (NEGATIVE); NITRITE,URINE NEGATIVE (NEGATIVE); PH,URINE 5.5 (5-9); PROTEIN,URINE NEGATIVE (NEGATIVE)
--- NOTE | 2022-06-08 19:50 | Diagnostic Imaging Report ---
INDICATION: Chest pain. EXAMINATION: Single AP view of the chest was obtained. COMPARISON: Study of 06/06/2019. FINDINGS: Heart size and pulmonary vascularity are within normal limits, and the lungs are clear, bilaterally. IMPRESSION: Unremarkable chest. Dictated by: Dictated on workstation # [id number]
[2022-06-08 19:52] LABS: BACTERIA,URINE FEW /HPF; RBC,URINE 0-2 /HPF; WBC,URINE 0-2 /HPF
--- NOTE | 2022-06-08 19:58 | ED General ---
General Chief Complaint: Chest Pain Stated Complaint: FELT LIKE PASSING OUT,WEAK Source of Information: Patient History of Present Illness Date Seen by Provider: Jun 08, 2022 Time Seen by Provider: 19:27 Initial Comments PT ARRIVES VIA POV PT STATES SHE WAS RIDING IN A CAR, AND BEGAN TO "FEEL WEIRD" AND THOUGHT SHE MIGHT PASS OUT SHE DENIES DIZZINESS HAS SLIGHT CHEST PRESSURE SHE HAS BEEN SICK FOR A COUPLE OF DAYS WITH COUGH, BODY ACHES, HEADACHE, AND DIARRHEA TODAY HAS HAD DIARRHEA ALL DAY--10 TIMES DENIES NAUSEA OR VOMITING, STATES SHE FEELS HUNGRY, AND THEY WERE ON THEIR WAY TO EAT WHEN SHE BEGAN FEELING THIS WAY NO VOMITING NO ABDOMINAL PAIN NO SHORTNESS OF BREATH NO SWELLING IN LEGS/ FEET OR PAIN IN CALVES SHE HAS A GRANDCHILD THAT TESTED + FOR INFLUENZA A IN THE LAST WEEK AND SHE HAS A SICK CHILD AT HOME NOW WITH SIMILAR SYMPTOMS/FLU SYMPTOMS PT WORKS AT A SCHOOL--MULTIPLE SICK CONTACTS THERE SHE NORMALLY DOES NOT DRINK ANY LIQUIDS DURING THE DAY--MAYBE 12 OZ CAN OF POP A DAY, OTHERWISE DOES NOT REALLY DRINK LIQUIDS PT IS NOT COVID OR FLU VACCINATED SHE STATES SHE HAD COVID THE END OF FEBRUARY PCP: DR. RUIZ Allergies and Home Medications Allergies Coded Allergies: No Known Drug Allergies (Unverified , 10/06/15) Patient Home Medication List Home Medication List Reviewed: Yes Enalapril Maleate (Enalapril Maleate) 10 Mg Tablet, 10 MG PO BID, (Reported) Entered as Reported by: MORGAN KENDRICK on 10/06/15 0827 Hydrochlorothiazide (Hydrochlorothiazide) 12.5 Mg Tablet, 12.5 MG PO DAILY Prescribed by: DAMION LENZ on 07/25/161707 Meloxicam (Mobic) 15 Mg Tablet, 15 MG PO DAILY Prescribed by: RAMU DIXON on 06/26/191949 Tizanidine HCl (Zanaflex) 4 Mg Tablet, 4 MG PO TID Prescribed by: RAMU DIXON on 06/26/191949 Review of Systems Review of Systems Constitutional: see HPI; No fever; malaise, weakness EENTM: no symptoms reported Respiratory: see HPI, cough; No short of breath Cardiovascular: see HPI, chest pain; No edema, No palpitations, No syncope Gastrointestinal: see HPI; No abdominal pain; diarrhea; No loss of appetite, No nausea, No vomiting Genitourinary: no symptoms reported Musculoskeletal: see HPI (BODY ACHES) Skin: no symptoms reported Psychiatric/Neurological: See HPI, Headache Hematologic/Lymphatic: No Symptoms Reported Immunological/Allergic: no symptoms reported Past Euexliq-Btqfvn-Gtljot Hx Patient Social History Tobacco Use?: No Smoking Status: Never a Smoker Smokeless Tobacco Frequency: Never a User Use of E-Cig and/or Vaping dev: No Use of E-Cig and/or Vaping Josemanuel: Never a User Substance use?: No Alcohol Use?: No Past Medical History Surgeries: Yes (R THORACIC OUTLET; HYST/BSO; APPY; ZEN) Adenoidectomy, Appendectomy, Gallbladder, Hysterectomy, Oophorectomy, Orthopedic, Tonsillectomy Respiratory: No Cardiac: Yes High Cholesterol, Hypertension Neurological: No Reproductive Disorders: Yes (FIBROID; S/P HYST/BSO) Female Reproductive Disorders: Menstrual Problems HIV/AIDS: No Genitourinary: No Gastrointestinal: No Musculoskeletal: Yes (RIGHT THORACIC OUTLET SURGERY) Endocrine: No HEENT: No Hearing Impairment: Denies Cancer: No Psychosocial: No Integumentary: No Blood Disorders: No Adverse Reaction/Blood Tranf: No (N/A) Physical Exam Vital Signs Vital Signs - First Documented Capillary Refill : Height, Weight, BMI Height: 5'4.00" Weight: 190lbs. 0.0oz. 86.022607rn; 34.00 BMI Method: General Appearance: No Apparent Distress, WD/WN, Obese HEENT: PERRL/EOMI, TMs Normal, Normal ENT Inspection, Pharynx Normal Neck: Normal Inspection Respiratory: Normal Breath Sounds, No Accessory Muscle Use, No Respiratory Distress Cardiovascular: No Edema, No Murmur, Normal Peripheral Pulses, Tachycardia ( 100-110) Gastrointestinal: Normal Bowel Sounds, Non Tender, Soft Back: Normal Inspection Extremity: Normal Capillary Refill, Normal Inspection, No Pedal Edema Neurologic/Psychiatric: Alert, Oriented x3, No Motor/Sensory Deficits, Normal Mood/Affect, glucose and syrup weigher II-XII Norm as Tested Skin: Normal Color, Warm/Dry Progress/Results/Core Measures Suspected Sepsis SIRS Temperature: Pulse: Respiratory Rate: Laboratory Tests 06/08/22 19:56: White Blood Count 11.1H Blood Pressure / Mean: Laboratory Tests 06/08/22 19:56: Creatinine 0.81, Platelet Count 337, Total Bilirubin 0.3 Results/Orders Lab Results Laboratory Tests Test 06/08/22 19:30 06/08/22 19:33 06/08/22 19:56 Range/Units Influenza Type A (RT-PCR) Not Detected Not Detecte Influenza Type B (RT-PCR) Not Detected Not Detecte SARS-CoV-2 RNA (RT-PCR) Not Detected Not Detecte Urine Color YELLOW Urine Clarity CLEAR Urine pH 5.5 5-9 Urine Specific [place] 1.015 L 1.016-1.022 Urine Protein NEGATIVE NEGATIVE Urine Glucose (UA) NEGATIVE NEGATIVE Urine Ketones NEGATIVE NEGATIVE Urine Nitrite NEGATIVE NEGATIVE Urine Bilirubin NEGATIVE NEGATIVE Urine Urobilinogen 0.2 < = 1.0 MG/DL Urine Leukocyte Esterase NEGATIVE NEGATIVE Urine RBC (Auto) TRACE-I H NEGATIVE Urine RBC 0-2 /HPF Urine WBC 0-2 /HPF Urine Squamous Epithelial Cells 10-25 H /HPF Urine Crystals NONE /LPF Urine Bacteria FEW H /HPF Urine Casts NONE /LPF Urine Mucus SMALL H /LPF Urine Culture Indicated NO White Blood Count 11.1 H 4.3-11.0 10^3/uL Red Blood Count 4.81 3.80-5.11 10^6/uL Hemoglobin 14.1 11.5-16.0 g/dL Hematocrit 41 35-52 % Mean Corpuscular Volume 86 80-99 fL Mean Corpuscular Hemoglobin 29 25-34 pg Mean Corpuscular Hemoglobin Concent 34 32-36 g/dL Red Cell Distribution Width 12.3 10.0-14.5 % Platelet Count 337 130-400 10^3/uL Mean Platelet Volume 9.3 9.0-12.2 fL Immature Granulocyte % (Auto) 0 % Neutrophils (%) (Auto) 63 42-75 % Lymphocytes (%) (Auto) 29 12-44 % Monocytes (%) (Auto) 6 0-12 % Eosinophils (%) (Auto) 2 0-10 % Basophils (%) (Auto) 0 0-10 % Neutrophils # (Auto) 6.9 1.8-7.8 10^3/uL Lymphocytes # (Auto) 3.2 1.0-4.0 10^3/uL Monocytes # (Auto) 0.7 0.0-1.0 10^3/uL Eosinophils # (Auto) 0.2 0.0-0.3 10^3/uL Basophils # (Auto) 0.0 0.0-0.1 10^3/uL Immature Granulocyte # (Auto) 0.0 0.0-0.1 10^3/uL Erythrocyte Sedimentation Rate 18 0-20 MM/HR D-Dimer 0.26 0.00-0.49 UG/ML Sodium Level 139 135-145 MMOL/L Potassium Level 3.5 L 3.6-5.0 MMOL/L Chloride Level 100 98-107 MMOL/L Carbon Dioxide Level 26 21-32 MMOL/L Anion Gap 13 5-14 MMOL/L Blood Urea Nitrogen 11 7-18 MG/DL Creatinine 0.81 0.60-1.30 MG/DL Estimat Glomerular Filtration Rate 89 BUN/Creatinine Ratio 14 Glucose Level 110 H 70-105 MG/DL Calcium Level 10.0 8.5-10.1 MG/DL Corrected Calcium 9.8 8.5-10.1 MG/DL Magnesium Level 2.0 1.6-2.4 MG/DL Total Bilirubin 0.3 0.1-1.0 MG/DL Aspartate Amino Transf (AST/SGOT) 14 5-34 U/L Alanine Aminotransferase (ALT/SGPT) 18 0-55 U/L Alkaline Phosphatase 111 40-136 U/L Total Creatine Kinase 85 29-168 U/L Creatine Kinase MB 1.0 <6.6 NG/ML Troponin I < 0.028 <0.028 NG/ML C-Reactive Protein High Sensitivity 0.80 H 0.00-0.50 MG/DL B-Type Natriuretic Peptide < 10.0 <100.0 PG/ML Total Protein 7.9 6.4-8.2 GM/DL Albumin 4.3 3.2-4.5 GM/DL TSH Grady Testing 4.81 0.35-4.94 UIU/ML Serum Test, Qualitative NEGATIVE NEGATIVE My Orders Orders - RAMU DIXON DO Ekg Tracing (06/08/22 19:28) Ed Iv/Invasive Line Start (06/08/22 19:28) O2 (06/08/22 19:28) Monitor-Rhythm Ecg Trace Only (06/08/22 19:28) Bnp Jayesh (06/08/22 19:28) Cbc With Automated Diff (06/08/22 19:28) Comprehensive Metabolic Panel (06/08/22 19:28) Creatine Kinase (06/08/22 19:28) Creatine Kinase Mb (06/08/22 19:28) Hs C Reactive Protein (06/08/22 19:28) Fibrin Degradation Products (06/08/22 19:28) Hcg,Qualitative Serum (06/08/22 19:28) Magnesium (06/08/22 19:28) Thyroid Analyzer (06/08/22 19:28) Ua Culture If Indicated (06/08/22 19:28) Erythrocyte Sedimentation Rate (06/08/22 19:28) Troponin I Branch (06/08/22 19:28) Chest 1 View, Ap/Pa Only (06/08/22 19:28) Covid 19 Inhouse Test (06/08/22 19:28) Influenza A And B By Pcr (06/08/22 19:28) Isolation Central Supply Req (06/08/22 19:28) Ed Iv/Invasive Line Start (06/08/22 19:58) Lactated Ringers (Lr 1000 Ml Iv Solution (06/08/22 20:00) Medications Given in ED Current Medications Medications Dose Ordered Sig/[place] Route Start Time Stop Time Status Last Admin Dose Admin Lactated Ringer's 1,000 ml @ 0 mls/hr Q0M ONCE IV 06/08/22 20:00 06/08/22 20:01 DC 06/08/22 20:03 999 MLS/HR Vital Signs/I&O 06/08/22 06/08/22 19:23 19:23 Temp 35.9 Pulse 105 Resp 16 B/P (MAP) 173/100 (124) Pulse Ox 99 O2 Delivery Room Air Room Air Capillary Refill : Progress Note : Progress Note PPE WORN COVID AND FLU TESTING DONE GIVEN: -IV FLUIDS UNEVENTFUL ER STAY FEELS BETTER AT DISMISSAL, NO CHEST PAIN, NO LONGER FEELS WEAK/LIKE SHE IS GOING TO PASS OUT PT WAS ABLE TO WALK TO AND FROM BATHROOM WITHOUT DIFFICULTY HEART RATE DOWN TO <100, OTHER VITALS STABLE REVIEWED TEST RESULTS, ANTICIPATED COURSE, SYMPTOMATIC TREATMENT, NEED FOR FOLLOW UP AND RETURN PRECAUTIONS ECG Initial ECG Impression Date: Jun 08, 2022 Initial ECG Impression Time: 19:28 Initial ECG Rate: 106 Initial ECG Rhythm: S.Tach Initial ECG Impression: Nonspecific Changes Comment NO SIGNIFICANT CHANGE FROM 06/26/2019, ONLY SOME CHANGE IN AXIS. INTERPRETED BY ME Diagnostic Imaging Comments CXR--PER RADIOLOGIST REPORT AT 1954 FINDINGS: Heart size and pulmonary vascularity are within normal limits, and the lungs are clear, bilaterally. IMPRESSION: Unremarkable chest. Reviewed: Reviewed by Me Departure Impression Primary Impression: SUSPECTED VIRAL ILLNESS Additional Impressions: Volume depletion Exposure to influenza Disposition: HOME, SELF-CARE Condition: Stable Departure-Patient Inst. Decision time for Depature: 20:58 Referrals: DEBBI RUIZ MD (PCP/Family) Primary Care Physician Patient Instructions: Dehydration, Adult (DC), Preventing the Spread of an Infectious Disease, VIRAL SYNDROME Add. Discharge Instructions: LOTS OF CLEAR LIQUIDS--WATER, BROTH, JELLO, GATORADE--DRINK ENOUGH SO THAT YOU ARE URINATING EVERY 2 HOURS WHILE AWAKE BRATS DIET--BANANAS, RICE, APPLESAUCE, TOAST, SALTINES TYLENOL AND MOTRIN NEEDED FOR PAIN OR FEVER FOLLOW UP WITH YOUR DR TOMORROW IF NO BETTER, RETURN TO ER IF WORSE All discharge instructions reviewed with patient and/or family. Voiced understanding. Work/School Note: Work Release Form Date Seen in the Emergency Department: Jun 08, 2022 Return to Work: Jun 10, 2022 RAMU DIXON DO Jun 08, 2022 19:58
[2022-06-08] MEDS ORDERED: LACTATED RINGERS 1,000 ML IV ONE (20:00)
[2022-06-08 20:06] LABS: BASOPHILS % (AUTO) 0 % (0-10); EOSINOPHILS # (AUTO) 0.2 10^3/uL (0.0-0.3); EOSINOPHILS % (AUTO) 2 % (0-10); HEMATOCRIT 41 % (35-52); HEMOGLOBIN 14.1 g/dL (11.5-16.0); LYMPHOCYTES # (AUTO) 3.2 10^3/uL (1.0-4.0); LYMPHOCYTES % (AUTO) 29 % (12-44); MEAN CORPUSCULAR HEMOGLOBIN 29 pg (25-34); MEAN CORPUSCULAR HGB CONC 34 g/dL (32-36); MEAN CORPUSCULAR VOLUME 86 fL (80-99); MEAN PLATELET VOLUME 9.3 fL (9.0-12.2); MONOCYTES # (AUTO) 0.7 10^3/uL (0.0-1.0); MONOCYTES % (AUTO) 6 % (0-12); NEUTROPHILS # (AUTO) 6.9 10^3/uL (1.8-7.8); NEUTROPHILS % (AUTO) 63 % (42-75); PLATELET COUNT 337 10^3/uL (130-400); WHITE BLOOD COUNT 11.1 10^3/uL (4.3-11.0)
[2022-06-08 20:17] LABS: ALBUMIN 4.3 GM/DL (3.2-4.5); CHLORIDE 100 MMOL/L (98-107); POTASSIUM 3.5 MMOL/L (3.6-5.0); SODIUM 139 MMOL/L (135-145)
[2022-06-08 20:19] LABS: GLUCOSE 110 MG/DL (70-105); TOTAL PROTEIN 7.9 GM/DL (6.4-8.2)
[2022-06-08 20:20] LABS: CARBON DIOXIDE 26 MMOL/L (21-32)
[2022-06-08 20:21] LABS: BILIRUBIN,TOTAL 0.3 MG/DL (0.1-1.0)
[2022-06-08 20:23] LABS: ALKALINE PHOSPHATASE 111 U/L (40-136); CREATININE SERUM 0.81 MG/DL (0.60-1.30); GFR ESTIMATED 89
[2022-06-08 20:24] LABS: BUN/CREATININE RATIO 14
[2022-06-08 20:26] LABS: ALANINE AMINOTRANSFERASE 18 U/L (0-55)
[2022-06-08 20:27] LABS: CREATINE KINASE 85 U/L (29-168)
[2022-06-08 20:33] LABS: ERYTHROCYTE SEDIMENTATION RATE 18 MM/HR (0-20)
[2022-06-08 20:47] LABS: TSH (THYROID ANALYZER) 4.81 UIU/ML (0.35-4.94)
[2022-06-08 21:02] VITALS: BP 132/83
== END 2022-06-08 21:09 | disposition home or self-care (01) ==
LOC: EDUNIT# 19:11 → ER 19:13
DX: E86.9 Volume depletion, unspecified (principal); Z20.828 Contact with and (suspected) exposure to other viral communicable diseases; Z28.310 Unvaccinated for COVID-19; Z20.822 Contact with and (suspected) exposure to COVID-19
CPT/HCPCS: 36415; 71045; 80053; 81000; 82550; 82553; 83735; 83880; 84443; 84484; 84703; 85025; 85379; 85652; 86141; 87636; 93005; 93041

== ENCOUNTER → 2022-07-29 | Outpatient (CLI) | payer BC ==
--- NOTE | 2022-07-29 10:00 | Diagnostic Imaging Report ---
PROCEDURE: US carotid duplex, bilateral. TECHNIQUE: Multiple real-time grayscale images were obtained over the carotid arteries in various projections, bilaterally. Additional spectral analysis and color Doppler duplex images were also obtained. INDICATION: Dizziness COMPARISON: 02/21/2020 FINDINGS: Minimal plaque is noted within the carotid arterial systems. Peak systolic velocities within the bilateral carotid arterial systems are within normal limits. Additionally, the bilateral internal carotid artery to common carotid artery ratios are within normal limits. Antegrade flow within bilateral vertebral arteries. IMPRESSION: No evidence of hemodynamically significant stenosis within the bilateral carotid arterial systems. Antegrade flow within bilateral vertebral arteries. Parameters based on the consensus panel Bowen-Scale and Doppler ultrasound criteria published March 2003, Radiology, Volume 229. DOPPLER (peak systolic velocity M/S Right Left CCA .86 1.1 ICA Proximal .80 .66 ICA Mid .81 .90 ICA Distal .90 1.1 RATIO 1.0 .98 ECA .92 1.1 VERT .49 .36 Dictated by: Dictated on workstation # [id number]
--- NOTE | 2022-07-29 11:38 | Diagnostic Imaging Report ---
INDICATION: Routine screening. Comparison is made with prior mammogram from 03/18/2021 and 02/21/2020. 2-D and 3-D bilateral screening mammography was performed with CAD. Scattered fibroglandular densities are identified bilaterally. Benign nodules in both breasts are again noted. A marker clip adjacent to left breast nodules again noted. No new mass or malignant-appearing microcalcifications are seen. Axillae are unremarkable. IMPRESSION: No mammographic features suspicious for malignancy are identified. ACR BI-RADS Category 2: Benign findings. Result letter will be mailed to the patient. Note: At least 10% of breast cancer is not imaged by mammography. BI-RADS Category 2 Dictated by: Dictated on workstation # [id number]
== END ==
LOC: RAD 08:30
PROVIDERS: ATTEND Family Medicine
DX: Z12.31 Encounter for screening mammogram for malignant neoplasm of breast (principal); R42 Dizziness and giddiness
CPT/HCPCS: 77063; 77067; 93880

== ENCOUNTER → 2022-10-05 | Outpatient (CLI) | payer BC ==
[~2022-10-05] MED LIST changes: -ENAL10TA16 PO; +ENLP10T PO
== END | disposition home or self-care (01) ==
LOC: PREOP 06:35
PROVIDERS: ATTEND Surgery
DX: Z01.818 Encounter for other preprocedural examination (principal)